=== PATIENT | female | born 1975 | race Caucasian/White ===

== ENCOUNTER → 2016-11-11 | Outpatient (CLI) | payer SELFPAY ==
[~2016-11-11] MED LIST: ALEVE220 M1 PO; ALEVE220 MG PO; AUGMENTIN875 MG PO; BACTRIM 400-801 EACH PO; DILAUDID 2MG(HYD2 MG PO; DRISDOL 5050000 UNIT PO; FIORICET 50-301 EACH PO; FLAGYL500 MG PO; FLORASTOR250 MG PO; GLUCOPHAGE500 MG PO; PROTONIX40 MG PO; REGLAN10 MG PO; TYLENOL325 MG PO
== END | disposition disaster alternative care site (69) ==
LOC: GRAD 12:30
DX: R06.02 Shortness of breath (principal); R05 Cough; R50.9 Fever, unspecified

== ENCOUNTER 2016-12-16 10:18 | Emergency (ER) | payer MEDICAID ==
--- NOTE | ~2016-12-16 | ER ---
[facility] AGE: 41 Y [address] ROOM: [place] [address] LOCATION: [facility] ADMIT DATE: 12/16/2016 ER/Outpatient Report DISCHARGE DATE: 12/16/2016 FAMILY PHYSICIAN: Physician, Unknown ATTENDING PHYSICIAN: Judson Nicholson Admission date and time documented on the medical record. I saw the patient at 1030 hours. CHIEF COMPLAINT: Cough and fever. HISTORY OF PRESENT ILLNESS: This patient is a 41-year-old female who has had a 5-day history of cough and fever. Temperature has been up to 101.3 at home. She had a near syncopal episode at the clinic after coughing hard. No trauma or fall. Kind of aches allover. No sore throat or earache, however. No neck or spine pain. No chest pain. No abdominal pain. Nauseated, but no vomiting or diarrhea. She does have some dysuria. No joint or muscle swelling, redness, or pain; just achiness. Skin has some scattered, red blotches. No neurologic changes, psychiatric issues, or endocrine problems. HOME MEDICATIONS: See attached medication list. ALLERGIES: DOXYCYCLINE AND CIPRO. SOCIAL HISTORY: Nonsmoker and nondrinker. SIGNIFICANT PAST MEDICAL HISTORY: Polycystic ovarian syndrome, diverticulosis, and diverticulitis. OPERATIONS: . REVIEW OF SYSTEMS: All systems reviewed by me are negative with the exception of those discussed in the History of Present Illness. PHYSICAL EXAMINATION: VITAL SIGNS: Temperature 100.9 tympanic, pulse 120 and regular, respirations 22, blood pressure 134/74, and O2 saturation on room air is 98%. HEENT: Head: Normocephalic. Eyes: Clear. Ears: Clear TMs bilaterally. [facility] AGE: 41 Y [address] ROOM: [place] [address] LOCATION: [facility] ADMIT DATE: 12/16/2016 ER/Outpatient Report DISCHARGE DATE: 12/16/2016 FAMILY PHYSICIAN: Physician, Unknown ATTENDING PHYSICIAN: Judson Nicholson Nose: Clear. Throat: Clear. Mucous membranes moist. Teeth and jaw intact. NECK: No nuchal rigidity. No thyromegaly or cervical adenopathy. No tenderness. SPINE: Negative. LUNGS: Clear. Decreased breath sounds in the left base. Scattered rhonchi. No wheezes. No rales. The patient is tachypneic at a rate of 22. HEART: Regular, tachy. Pulses palpable. Rate is 120. CHEST: No chest wall or ribcage pain to palpation. ABDOMEN: Soft, nondistended, and nontender. Good bowel tones. No organomegaly or abnormal masses palpable. EXTREMITIES: Without peripheral edema, cyanosis, or deformity. Neurovascularly intact. SKIN: Clear. No skin eruptions or rash other than just some isolated red blotches. DIAGNOSTIC DATA: Chest x-ray shows beginning left lower lobe infiltrate. X-ray was read by Radiology, see dictated transcribed report. EKG showed sinus tach at a rate of 122. No acute ST elevation, ischemic change, or arrhythmia. LABORATORY DATA: Procalcitonin was 0.10. White count was 10,500 with 76 segs, 13 lymphs, and 10 monos; hemoglobin was 13.7 with hematocrit 40.3; and platelet count was 222,000. CMS was normal except an elevated alkaline phosphatase of 160 and elevated AST of 53. CRP was 16.20. Urine showed 50 to 100 whites, 10 to 20 reds, 10 to 20 epithelial cells, rare bacteria, 2+ mucus, 1+ amorphous material, with negative nitrites. Culture pending. Two blood cultures drawn, results pending. Influenza A and B were both negative. EMERGENCY DEPARTMENT COURSE: I did start the patient on IV normal saline fluids. Gave her Zofran 8 mg IV for nausea and vomiting and Rocephin 2 g IV in the emergency department. IMPRESSION: Left lower lobe pneumonia with fever and cough. PLAN: After the fluids and Rocephin were run intravenously, we dismissed the patient to home. Fluids. Good hydration. Continue present home medications and care. Z-Hernandez, take as directed. Zofran 4 mg tablet one every 4 to 6 hours as needed for nausea and vomiting, #12. Tylenol or ibuprofen 2 orally every 4 to 6 hours as needed for fever. Rest. Follow up with personal physician in 3 to 5 days. Discussion ensued with the patient concerning my findings and PATIENT'S NAME: AGUSTIN HUTCHINS [facility] AGE: 41 Y [address] ROOM: [place], [place] [address] LOCATION: [facility] ADMIT DATE: 12/16/2016 ER/Outpatient Report DISCHARGE DATE: 12/16/2016 FAMILY PHYSICIAN: Suman Anderson ATTENDING PHYSICIAN: Judson Nicholson recommendations. MD JOSSUE BALL/frankl /[id number] d: 12/16/16 1814 t: 12/17/16 0612, OUTPATIENT REPORT
[2016-12-16 11:09] LABS: BASOPHIL % 0.3 %; EOSINOPHIL % 0.4 %; HEMATOCRIT 40.3 % (33.0-46.0); HEMOGLOBIN 13.7 g/dL (11.0-15.0); IMMATURE GRANULOCYTE # 0.1 K/uL (0.0-0.3); IMMATURE GRANULOCYTE % 0.5 %; LYMPHOCYTE # 1.4 K/uL (0.8-4.0); MCH 29.8 pg (27.0-34.0); MCV 87.8 fl (83.0-98.0); MONOCYTE % 9.9 %; MPV 10.6 fl (9.4-12.4); NEUTROPHIL % 75.9 %; NRBC % 0 /100WBC (0-0.00); PLATELET COUNT 222 K/uL (150-450); RBC 4.59 M/uL (3.50-5.50); RDW-CV 12.8 % (11.9-14.6); WBC 10.5 K/uL (4.0-11.0)
[2016-12-16 11:23] LABS: ALBUMIN 3.6 gm/dL (3.5-5.0); ANION GAP 12.8 (10.0-19.0); CALCIUM 8.9 mg/dL (8.5-10.5); CREATININE 1.1 mg/dL (0.5-1.1); POTASSIUM 3.8 mMol/L (3.7-5.1); TOTAL BILIRUBIN 0.6 mg/dL (0.0-1.5); TOTAL PROTEIN 8.3 g/dL (6.0-8.4)
[2016-12-16 11:51] LABS: BLOOD URINE 25 /UL (NEGATIVE); COLOR URINE YELLOW (YELLOW); GLUCOSE URINE NEGATIVE (NEGATIVE); KETONE URINE 5 mg/dL (NEGATIVE); LEUKOCYTES URINE 100 /UL (NEGATIVE); NITRITE URINE NEGATIVE (NEGATIVE); PROTEIN URINE 100 mg/dL (NEGATIVE); TURBIDITY URINE CLEAR (CLEAR); UROBILINOGEN URINE 1 mg/dL (NORMAL)
[2016-12-16 11:58] LABS: AMORPHOUS URINE 1+ (NEGATIVE); BACTERIA URINE RARE (NEGATIVE); MUCUS URINE 2+ (NEGATIVE); WBC URINE 50-100 #/HPF (NEGATIVE)
== END 2016-12-16 13:27 | disposition disaster alternative care site (69) ==
LOC: GMED 10:18
PROVIDERS: Emergency Medicine
DX: J18.9 Pneumonia, unspecified organism (principal); Z88.1 Allergy status to other antibiotic agents
CPT/HCPCS: J0696; J2405; J7030

== ENCOUNTER 2017-04-05 23:56 | Emergency (ER) | payer MEDICAID ==
--- NOTE | ~2017-04-05 | ER ---
[facility] AGE[facility] 42 Y [address] ROOM: [place] [address] LOCATION: [facility] ADMIT DATE: 04/05/2017 ER/Outpatient Report DISCHARGE DATE: 04/06/2017 FAMILY PHYSICIAN: Ness Castro MD ATTENDING PHYSICIAN: Brijesh Castro Time of Arrival: 2356 hours. Time of Evaluation: 0015 hours. This is a 42-year-old female, previously reasonably healthy. She is in with complaint of nausea and dizziness. HISTORY OF PRESENT ILLNESS: The patient reports she had a dental procedure at 3 o'clock this afternoon in [facility]. She states that she is n.p.o. after midnight last night. She had the dental procedure under sedation and local anesthesia. She had 2 teeth extracted. She states she was not able to eat after that. She came home and took a Vicodin. She woke up tonight, she felt nauseated and lightheaded and dizzy. PAST MEDICAL HISTORY: Significant for polycystic ovary syndrome, generalized anxiety, she has a history of diverticulosis. CURRENT MEDICATIONS: Clindamycin, which was given IV earlier today and Vicodin. She also received IV conscious sedation today. PHYSICAL EXAMINATION: GENERAL: Alert, but drowsy, obese female, in no acute physiologic distress. SKIN: Warm and dry. Color is normal. HEAD, EARS, EYES, NOSE, THROAT: Revealed scant bleeding from her extraction site. There is no trismus. NECK: Supple. RESPIRATORY: There is no respiratory distress. The rest of exam is unremarkable. ASSESSMENT: Adverse medication reaction. PLAN: She was instructed to eat before she takes any additional Vicodin and continue her current medications. Follow up with her regular doctor as needed. CBC and metabolic profile were unremarkable. She was given 1 L of normal saline [facility] 42 Y [address] ROOM: [place] [address] LOCATION: [facility] ADMIT DATE: 04/05/2017 ER/Outpatient Report DISCHARGE DATE: 04/06/2017 FAMILY PHYSICIAN: Ness Castro MD ATTENDING PHYSICIAN: Brijesh Castro in the emergency department. BRIJESH CASTRO MD JDB/modl /[id number] d: 04/06/17 0446 t: 04/08/17 0550, OUTPATIENT REPORT
[2017-04-06 00:57] LABS: BASOPHIL % 0.3 %; EOSINOPHIL % 0.4 %; HEMATOCRIT 39.4 % (33.0-46.0); HEMOGLOBIN 13.3 g/dL (10.0-15.0); IMMATURE GRANULOCYTE % 0.2 %; LYMPHOCYTE # 1.6 K/uL (0.8-4.0); LYMPHOCYTE % 15.1 %; MCH 29.6 pg (27.0-34.0); MCHC 33.8 gm/dL (32.0-36.5); MCV 87.8 fl (83.0-98.0); MONOCYTE # 0.7 K/uL (0.0-1.0); MONOCYTE % 6.5 %; MPV 10.5 fl (9.4-12.4); NEUTROPHIL # (ANC) 8.1 K/uL (1.8-7.8); NEUTROPHIL % 77.5 %; NRBC % 0 /100WBC (0-0.00); PLATELET COUNT 203 K/uL (150-450); RBC 4.49 M/uL (3.50-5.50); WBC 10.4 K/uL (4.0-11.0)
[2017-04-06 01:14] LABS: ALBUMIN 3.6 gm/dL (3.5-5.0); ALK PHOS 88 IU/L (33-138); ALT 22 IU/L (12-78); ANION GAP 10.5 (10.0-19.0); AST 17 IU/L (10-40); BLOOD UREA NITROGEN 10 mg/dL (6-24); CALCIUM 8.1 mg/dL (8.5-10.5); CHLORIDE 109 mMol/L (96-110); CO2 23 mMol/L (22-32); CREATININE 0.8 mg/dL (0.5-1.1); POTASSIUM 3.5 mMol/L (3.7-5.1); SODIUM 139 mMol/L (135-145); TOTAL BILIRUBIN 0.6 mg/dL (0.0-1.5); TOTAL PROTEIN 7.1 g/dL (6.0-8.4)
== END 2017-04-06 01:50 | disposition disaster alternative care site (69) ==
LOC: GMED 23:56
PROVIDERS: Emergency Medicine
DX: R42 Dizziness and giddiness (principal); R11.0 Nausea; T40.2X5A Adverse effect of other opioids, initial encounter; F41.9 Anxiety disorder, unspecified; E28.2 Polycystic ovarian syndrome; Z88.1 Allergy status to other antibiotic agents; Z88.8 Allergy status to other drugs, medicaments and biological substances; Z79.899 Other long term (current) drug therapy
CPT/HCPCS: J2405; J7030

== ENCOUNTER → 2017-04-05 | Outpatient (CLI) | payer MEDICAID | END | disposition disaster alternative care site (69) | LOC: GAMB 23:27 | DX: K08.89 Other specified disorders of teeth and supporting structures (principal); K13.79 Other lesions of oral mucosa; R11.2 Nausea with vomiting, unspecified; R68.84 Jaw pain | CPT/HCPCS: A0425; A0427; J2405 ==